=== PATIENT | female | born 1930 | race Caucasian/White ===

== ENCOUNTER → 2016-09-18 | Outpatient (CLI) | payer MEDICARE, OTHER ==
[~2016-09-18] VITALS: Ht 149.9 cm; Wt 40.2 kg
[~2016-09-18] MED LIST: ALEN1TAB48 PO; ASPI1TAB69 PO; ATOR1TAB18 PO; DILT300C3 PO; INSULIN HUMAN REGULAR 1,000 UNITS/10 ML VIAL SQ PRN; LACTATED RINGER'S 1000 ML IV SCH; LEVO50TA4 PO; METOPROLOL TARTRATE 25 MG TAB PO PRN; PANT40TA3 PO; PRED2.5T PO; PROPOFOL 200 MG/20 ML AMP IV ONE; SODIUM CHLORID 0.9% 500 ML IV SCH; SUPETAB PO; SUPETAB20 PO; VITA100064 PO
[2016-09-18 08:39] VITALS: BP 183/87; PULSE 98; RESP 16; TEMP 98.1; O2SAT 97
[2016-09-18 10:08] VITALS: BP 139/65; PULSE 75; RESP 16; O2SAT 100
--- NOTE | 2016-09-18 13:43 | EKG ---
Date Performed: 09/18/2016 Time Performed: 08:43:06 PTAGE: 86 years EKG: SINUS TACHYCARDIA Compared to prior tracing the sinus tachycardia is new and the PVCs have resolved. The minimal nonspecific ST segment changes persist. ABNORMAL RHYTHM ECG PREVIOUS TRACING : 05/22/2009 08.59 DOCTOR: Martha Pacheco Interpretating Date/Time 09/18/2016 13:35:45
== END ==
LOC: HEND 08:03
PROVIDERS: ATTEND Internal Medicine Gastroenterology
DX: K29.50 Unspecified chronic gastritis without bleeding (principal); K44.9 Diaphragmatic hernia without obstruction or gangrene; K64.4 Residual hemorrhoidal skin tags; K64.8 Other hemorrhoids; R10.13 Epigastric pain; I10 Essential (primary) hypertension; R94.31 Abnormal electrocardiogram [ECG] [EKG]
CPT/HCPCS: 43239; 45378; 88305; 88312; 93005; 99156; 99157; J7120

== ENCOUNTER → 2016-11-09 | Day surgery (SDC) | payer MEDICARE, OTHER ==
[~2016-11-09] VITALS: Ht 149.9 cm; Wt 38.0 kg
[~2016-11-09] MED LIST changes: +CYCLOPENTOLATE HCL 1% OPHT SOLN 2 ML BTL ONE; +FLURBIPROFEN 0.03% OPHT SOLN 2.5 ML BTL ONE; +HYALURONIDASE/LIDOCAINE/EPINEPHRINE/BUPIVACAINE 6 ML SYR ONE; -INSULIN HUMAN REGULAR 1,000 UNITS/10 ML VIAL SQ PRN; -LACTATED RINGER'S 1000 ML IV SCH; +LIDOCAINE HCL 1% 30 ML VIAL ONE; -METOPROLOL TARTRATE 25 MG TAB PO PRN; +MIDAZOLAM HCL 2 MG/2 ML VIAL ONE; +PHENYLEPHRINE HCL 10% OPTH SOLN 5 ML BTL ONE; +PROPARACAINE HCL 0.5% OPHT SOLN 15 ML BTL ONE; -PROPOFOL 200 MG/20 ML AMP IV ONE; +PROPOFOL 200 MG/20 ML AMP ONE; +SODIUM CHLORID 0.9% 500 ML INJ 500 ML ONE; -SODIUM CHLORID 0.9% 500 ML IV SCH; +TOBRAMYCIN 0.3%/DEXAMETHASONE 0.1% OPHT SUSP 5 ML BTL ONE; +TOBRAMYCIN/DEXAMETHASONE OPTH OINT 3.5 GM TUBE LEFT EYE ONE; +TROPICAMIDE 1% OPHT SOLN 15 ML BTL ONE
[2016-11-09 08:02] VITALS: BP 158/85; PULSE 86; RESP 16; TEMP 97.7; O2SAT 94
[2016-11-09 08:12] VITALS: PULSE 86
[2016-11-09 08:30] VITALS: PULSE 84
[2016-11-09 09:50] VITALS: TEMP 98.3
[2016-11-09 10:13] VITALS: BP 129/75; PULSE 76; RESP 14; O2SAT 96
--- NOTE | 2016-11-11 09:37 | MP ---
cc: BALDEV DENSON M.D. [facility] #[id number] DATE OF SURGERY 11/09/2016 PREOPERATIVE DIAGNOSIS Visually significant cataract left eye. POSTOPERATIVE DIAGNOSIS Visually significant cataract left eye. OPERATION Phacoemulsification with posterior chamber lens implantation, left eye. SURGEON Baldev Denson MD ANESTHESIA Retrobulbar with MAC. COMPLICATIONS None PROCEDURE After informed consent was obtained, the patient was brought into the operative suite and placed on appropriate monitors by the Anesthesia Service. The patient had received a prior retrobulbar injection of local anesthetic by the Anesthesia Service in the holding area. The patient's operative eye was then prepped and draped in the usual sterile fashion. A wire lid speculum was placed. A paracentesis incision was made in the peripheral cornea with a 1 mm bina keratome. The anterior chamber was filled with viscoelastic. The anterior chamber was then entered through a stepped, clear corneal incision using a sharp 3 mm bian keratome. A circular tear capsulorrhexis was then made with a bent needle cystitome. Following hydrodissection of the lens nucleus with balanced saline, phacoemulsification of the nucleus was performed using a modified chopping technique. The remaining cortex was removed with irrigation/aspiration. The prior two procedures were both performed using the handpieces of the [employer] phaco unit. The capsular bag was then filled with viscoelastic. The intraocular lens was then injected into the capsular bag and positioned. The type of intraocular lens and its power can be found elsewhere in this chart. The remaining viscoelastic was then removed from the anterior chamber with the IA handpiece. The anterior chamber was reformed with balanced saline. The wound was then closed securely with stromal hydration. It was found to be watertight to an intraocular pressure of at least 30 mmHg by palpation. A small amount of balanced salt solution was then removed through the paracentesis site and the intraocular pressure at the end of the case was approximately 20 by palpation. All drapes were then removed. TobraDex ointment was then placed in the eye, which was closed beneath a semi-pressure patch dressing. The patient tolerated this procedure well and left the operating room awake and alert. The patient is to follow-up in my office in the morning. ADDENDUM Earlier in the surgery, it was noted that there was a 2-3 clock hour zonular dehiscence inferotemporally. This did not effect the cataract removal as no vitreous presented through the zonular dehiscence. The lens implant was placed in the capsular bag and centered well. I was reluctant to rotate the lens inside the bag to place the haptics in the meridian of the zonular dehiscence because the capsular bag did appear a little unstable and I did not want to extend the dehiscence. There was no vitreous in the anterior chamber at the end of the surgery and so a vitrectomy was not necessary. MD JOSE CRUZ Langston/RACHEL /9:48 AM /9:24 AM
== END | disposition home or self-care (01) ==
LOC: PHSDC 06:42
PROVIDERS: ATTEND Optometrist Occupational Vision
DX: H25.812 Combined forms of age-related cataract, left eye (principal)
CPT/HCPCS: 00142; 66984; J2250; J7040; V2632

== ENCOUNTER → 2016-12-24 | Day surgery (SDC) | payer MEDICARE, OTHER ==
[~2016-12-24] VITALS: Ht 149.9 cm; Wt 39.0 kg
[~2016-12-24] MED LIST changes: -LIDOCAINE HCL 1% 30 ML VIAL ONE; +LIDOCAINE HCL 1% PF 30 ML VIAL ONE; -MIDAZOLAM HCL 2 MG/2 ML VIAL ONE; -TOBRAMYCIN 0.3%/DEXAMETHASONE 0.1% OPHT SUSP 5 ML BTL ONE; -TOBRAMYCIN/DEXAMETHASONE OPTH OINT 3.5 GM TUBE LEFT EYE ONE
[2016-12-24] MEDS: TOBRAMYCIN/DEXAMETHASONE OPTH OINT 3.5 GM TUBE ONE ×2 (07:33→09:30)
[2016-12-24] MEDS: LIDOCAINE HCL 1% PF 30 ML VIAL ONE ×2 (07:34→09:19)
[2016-12-24 08:00] VITALS: BP 159/85; PULSE 75; RESP 16; TEMP 97.6; O2SAT 100
[2016-12-24 08:05] VITALS: PULSE 75
[2016-12-24 08:40] VITALS: PULSE 76
[2016-12-24 10:16] VITALS: BP 123/73; PULSE 75; RESP 16; TEMP 98; O2SAT 98
--- NOTE | 2016-12-25 12:48 | MP ---
cc: BALDEV DENSON M.D. DATE OF SURGERY: 12/24/2016 [facility] NUMBER: [id number]. PREOPERATIVE DIAGNOSIS Visually significant cataract right eye. POSTOPERATIVE DIAGNOSIS Visually significant cataract right eye. OPERATION Phacoemulsification with posterior chamber lens implantation, right eye. SURGEON Baldev Denson MD ANESTHESIA Retrobulbar with MAC. COMPLICATIONS None PROCEDURE After informed consent was obtained, the patient was brought into the operative suite and placed on appropriate monitors by the Anesthesia Service. The patient had received a prior retrobulbar injection of local anesthetic by the Anesthesia Service in the holding area. The patient's operative eye was then prepped and draped in the usual sterile fashion. A wire lid speculum was placed. A paracentesis incision was made in the peripheral cornea with a 1 mm bina keratome. The anterior chamber was filled with viscoelastic. The anterior chamber was then entered through a stepped, clear corneal incision using a sharp 3 mm bina keratome. A circular tear capsulorrhexis was then made with a bent needle cystitome. Following hydrodissection of the lens nucleus with balanced saline, phacoemulsification of the nucleus was performed using a modified chopping technique. The remaining cortex was removed with irrigation/aspiration. The prior two procedures were both performed using the handpieces of the [employer] phaco unit. The capsular bag was then filled with viscoelastic. The intraocular lens was then injected into the capsular bag and positioned. The type of intraocular lens and its power can be found elsewhere in this chart. The remaining viscoelastic was then removed from the anterior chamber with the IA handpiece. The anterior chamber was reformed with balanced saline. The wound was then closed securely with stromal hydration. It was found to be watertight to an intraocular pressure of at least 30 mmHg by palpation. A small amount of balanced salt solution was then removed through the paracentesis site and the intraocular pressure at the end of the case was approximately 20 by palpation. All drapes were then removed. TobraDex ointment was then placed in the eye, which was closed beneath a semi-pressure patch dressing. The patient tolerated this procedure well and left the operating room awake and alert. The patient is to follow-up in my office in the morning. MD JOSE CRUZ Langston/CHET /10:01 AM /12:41 PM
== END | disposition home or self-care (01) ==
LOC: PHSDC 06:42
PROVIDERS: ATTEND Optometrist Occupational Vision
DX: H25.811 Combined forms of age-related cataract, right eye (principal)
CPT/HCPCS: 00142; 66984; J7040; V2632